=== PATIENT | male | born 1995 | race Caucasian/White ===

== ENCOUNTER 2017-05-11 20:44 | Emergency (ER) | payer OTHER ==
[2017-05-11 20:52] VITALS: BP 108/69; PULSE 74; RESP 14; TEMP 97.9; O2SAT 99
--- NOTE | 2017-05-11 22:18 | PD ---
HPI Chief Complaint: Complaint Time Seen by Provider: 21:44 Travel History International Travel<30 days: No Contact w/Intl Traveler<30days: No Traveled to known affect area: No History of Present Illness HPI Patient is a 22-year-old male presenting to the emergency room for evaluation of left testicle pain. Patient states he fell off his skateboard 1 week ago, landing on his left side. Since that time he felt a tightness in the left testicle that goes into the lower abdomen. He states it feels as if his testicle is retracting. Patient did not hit his testicle on anything he states he did a parachute roll when he fell off. He denies any head injury or loss of consciousness. He has no other physical complaints at this time. He reports the pain feels tight and crampy, the pain is a 7 out of 10 at times, symptom severity is mild to moderate. PFSH Past Medical History Anxiety: Yes Depression: Yes Insomnia: Yes Medical other: Yes ("PRE GLAUCOMA") Psychiatric: Yes (PTSD) Tetanus Vaccination: Unknown Influenza Vaccination: No Past Surgical History Other Surgery: Yes (WISDOM TEETH, EYE PRESSURE SX) Social History Alcohol Use: No Tobacco Use: Yes Substance Use: No Allergies-Medications (Allergen,Severity, Reaction): Coded Allergies: No Known Allergies (Unverified , 05/11/17) Reported Meds & Prescriptions Reported Meds & Active Scripts Active No Active Prescriptions or Reported Medications Review of Systems Except as stated in HPI: all other systems reviewed are Neg Genitourinary: Positive: Other Physical Exam Narrative GENERAL: Well-developed, well-nourished, alert male. Resting comfortably in no acute distress. SKIN: Warm and dry. HEAD: Atraumatic. Normocephalic. EYES: Pupils equal and round. No scleral icterus. No injection or drainage. ENT: No nasal bleeding or discharge. Mucous membranes pink and moist. NECK: Trachea midline. No JVD. CARDIOVASCULAR: Regular rate and rhythm. RESPIRATORY: No accessory muscle use. Clear to auscultation. Breath sounds equal bilaterally. GASTROINTESTINAL: Abdomen soft, non-tender, nondistended. Hepatic and splenic margins not palpable. MUSCULOSKELETAL: Extremities without clubbing, cyanosis, or edema. No obvious deformities. NEUROLOGICAL: Awake and alert. No obvious cranial nerve deficits. Motor grossly within normal limits. Five out of 5 muscle strength in the arms and legs. Normal speech. PSYCHIATRIC: Appropriate mood and affect; insight and judgment normal. Data Data Last Documented VS Vital Signs Date Time Temp Pulse Resp B/P (MAP) Pulse Ox O2 Delivery O2 Flow Rate FiO2 05/11/17 20:52 97.9 74 14 108/69 (82) 99 Orders Orders Us Testicles W Doppler (05/11/17 ) [facility] Medical Decision Making Medical Screen Exam Complete: Yes Emergency Medical Condition: Yes Interpretation(s) Vital Signs Date Time Temp Pulse Resp B/P (MAP) Pulse Ox O2 Delivery O2 Flow Rate FiO2 05/11/17 20:52 97.9 74 14 108/69 (82) 99 Differential Diagnosis Torsion versus groin strain versus hydrocele versus other Narrative Course Patient is well-appearing 22-year-old male presenting for evaluation of left testicle pain after falling off of his skateboard last week. Exam is unremarkable, patient's vital signs are stable. Ultrasound is negative for acute abnormalities. Symptoms appear most consistent with a groin strain. Patient is encouraged to apply warm compresses the affected area, continue gentle range of motion exercises, avoid exacerbating activities. He is encouraged to follow-up with his primary doctor or return to emergency department for any new worsening symptoms. He verbalized understanding of these instructions. Patient stable for discharge. Diagnosis Primary Impression: Strain of groin Qualified Codes: S76.212A - Strain of adductor muscle, fascia and tendon of left thigh, initial encounter Referrals: Primary Care Physician Patient Instructions: General Instructions, Groin Strain (ED) Additional Instructions: Follow-up with your primary doctor Apply warm heat to affected area, continue gentle range of motion exercises, avoid exacerbating activities, avoid bed rest. Take medications as directed Return to emergency department for any new worsening symptoms Med/Other Pt SpecificInfo: Prescription(s) given Scripts Cyclobenzaprine (Flexeril) 10 Mg Tab 10 MG PO TID Y for MUSCLE SPASM, #30 TAB 0 Refills Prov: Radha Dickerson 05/11/17 Ibuprofen (Ibuprofen) 800 Mg Tab 800 MG PO Q6HR Y for PAIN, #40 TAB 0 Refills Prov: Radha Dickerson 05/11/17 Disposition: 01 DISCHARGE HOME Condition: Stable Radha Dickerson May 11, 2017 22:18
--- NOTE | 2017-05-11 22:24 | RADRPT ---
EXAM DATE/TIME: 05/11/2017 21:49 [facility] COMPARISON: No previous studies available for comparison. INDICATIONS : Trauma. MEDICAL HISTORY : None. SURGICAL HISTORY : None. ENCOUNTER: Initial ACUITY: 1 week PAIN SCORE: 4/10 LOCATION: Bilateral testicles. MEASUREMENTS: RIGHT TESTICLE: 4.6 x 2.8 x 1.7cm LEFT TESTICLE: 4.1 x 2.9 x 1.9cm FINDINGS: RIGHT TESTICLE: Homogeneous echotexture without intra or extratesticular mass. Blood flow is symmetric and within no rmal limits. No hydrocele or varicocele. Epididymis is within normal limits. LEFT TESTICLE: Homogeneous echotexture without intra or extratesticular mass. Blood flow is symmetric and within no rmal limits. No hydrocele or varicocele. Epididymis is within normal limits. SCROTUM: Within normal limits. CONCLUSION: 1. Normal ultrasound of the testicles Luis Menjivar MD on May 11, 2017 at 22:23 Board Certified Radiologist. This report was verified electronically.
[2017-05-11] MEDS ORDERED: IBUP1TAB7 PO (22:45)
[2017-05-11] MEDS ORDERED: CYCL10TA PO (22:45)
== END 2017-05-11 23:11 | disposition home or self-care (01) ==
LOC: NEPD 20:44
DX: S76.212A Strain of adductor muscle, fascia and tendon of left thigh, initial encounter (principal); F41.9 Anxiety disorder, unspecified; F32.9 Major depressive disorder, single episode, unspecified; F43.10 Post-traumatic stress disorder, unspecified; V00.131A Fall from skateboard, initial encounter; Y93.51 Activity, roller skating (inline) and skateboarding; Z72.0 Tobacco use
CPT/HCPCS: 76870; 93975; 99284

== ENCOUNTER 2017-08-14 16:02 | Emergency (ER) | payer OTHER ==
[~2017-08-14] VITALS: Ht 172.7 cm; Wt 60.0 kg
[~2017-08-14 16:02] MED LIST: CYCL10TA PO; IBUP1TAB7 PO
[2017-08-14 16:04] VITALS: BP 135/77; PULSE 110; RESP 16; TEMP 98.4; O2SAT 98
--- NOTE | 2017-08-14 17:11 | PD ---
HPI Chief Complaint: Complaint Time Seen by Provider: 16:28 Travel History International Travel<30 days: No Contact w/Intl Traveler<30days: No Traveled to known affect area: No History of Present Illness HPI 22-year-old male presents to the emergency department requesting STD check. He said his girlfriend was diagnosed with either chlamydia or gonorrhea yesterday; he says he cannot remember which one. He denies penile drainage, discharge. Denies dysuria. Denies testicular pain or swelling. Denies fever, vomiting, abdominal pain. Has not taken any medications or trying treatments to alleviate his symptoms. No known aggravating or relieving factors. Symptoms are mild in severity. [facility] care provider [facility]. History of glaucoma and anxiety. No known allergies. Has no other medical complaints. No other modifying factors or associated signs and symptoms. PFSH Past Medical History Anxiety: Yes Depression: Yes Insomnia: Yes Psychiatric: Yes (PTSD) Past Surgical History Other Surgery: Yes (WISDOM TEETH, EYE PRESSURE SX) Social History Alcohol Use: No Tobacco Use: Yes Substance Use: No Allergies-Medications (Allergen,Severity, Reaction): Coded Allergies: No Known Allergies (Unverified , 05/11/17) Reported Meds & Prescriptions Reported Meds & Active Scripts Active No Active Prescriptions or Reported Medications Review of Systems Except as stated in HPI: all other systems reviewed are Neg Physical Exam Narrative GENERAL: Well-nourished, well-developed male patient, in no acute distress SKIN: Warm and dry. HEAD: Atraumatic. Normocephalic. EYES: Pupils equal and round. ENT: Mucosa pink and moist. NECK: Trachea midline. No lymphadenopathy. CARDIOVASCULAR: Regular rate RESPIRATORY: No accessory muscle use. GASTROINTESTINAL: Flat. GENITOURINARY: Exam done in the presence of a nurse. Circumcised. Testes descended bilaterally without evidence of rotation. No lesions or erythema. Milky white urethral discharge. MUSCULOSKELETAL: No obvious deformities. No clubbing. No cyanosis. No edema. NEUROLOGICAL: Awake and alert. Oriented 3. No obvious cranial nerve deficits. Motor grossly within normal limits. Normal speech. Moves all extremities. 5/5 strength to all extremities. PSYCHIATRIC: Appropriate mood and affect; insight and judgment normal. Data Data Last Documented VS Vital Signs Date Time Temp Pulse Resp B/P (MAP) Pulse Ox O2 Delivery O2 Flow Rate FiO2 08/14/17 16:04 98.4 110 16 135/77 (96) 98 Orders Orders Gc And Chlamydia Pcr (08/14/17 17:08) Azithromycin Powd Pack (Zithromax Powd P (08/14/17 17:15) Ceftriaxone Inj (Rocephin Inj) (08/14/17 17:15) Lidocaine 1% Inj (50 Ml) (Xylocaine 1% I (08/14/17 17:15) Metronidazole (Flagyl) (08/14/17 17:15) Ed Discharge Order (08/14/17 17:09) Labs Laboratory Tests Test 08/14/17 17:10 [facility] Medical Decision Making Medical Screen Exam Complete: Yes Emergency Medical Condition: Yes Medical Record Reviewed: Yes Differential Diagnosis Urethritis, chlamydia, gonorrhea, STD exposure Narrative Course 22-year-old male physical exam consistent with urethritis. He does have a milky white discharge from his penis. Chlamydia and gonorrhea ordered and pending. Patient empirically treated with Rocephin, azithromycin, Flagyl in the ER. Instructed patient to follow-up with the [facility] or [facility] department for full STD/STI screen. Instructed patient to follow up with primary care provider. Patient verbalizes understanding and agreement with treatment plan. Patient is medically cleared and stable for discharge. Discussed reasons to return to the emergency department. Patient agrees with treatment plan. The patients vital signs are stable and the patient is stable for outpatient follow-up and treatment. Patient discharged home, stable and in no acute distress. Diagnosis Primary Impression: Urethritis Referrals: [facility] Primary Care Physician [facility] Dept. Patient Instructions: Chlamydia (ED), General Instructions, Gonorrhea (ED), Sexually Transmitted Diseases (ED), Trichomoniasis (ED) Additional Instructions: Avoid sexual activity for 14 days No sexual activity with your partner/s until they have been treated and waited 14 days Inform all sexual partners within the past 3-6 months that they need to be evaluated and treated Use condoms every time you have sex Follow-up with primary care provider Return to the emergency department immediately with worsening of symptoms Med/Other Pt SpecificInfo: No Change to Meds, No Meds Exist/No RX given Scripts No Active Prescriptions or Reported Meds Disposition: 01 DISCHARGE HOME Condition: Stable Antonia Cardenas Aug 14, 2017 17:11
[2017-08-14] MEDS ORDERED: cefTRIAXone 250 MG VIAL IM ONE (17:15)
[2017-08-14] MEDS ORDERED: AZITHROMYCIN PWD FOR SUSP 1 GM PACKET PO ONE (17:15)
[2017-08-14] MEDS ORDERED: metroNIDAZOLE 500 MG TAB PO ONE (17:15)
[2017-08-14] MEDS ORDERED: LIDOCAINE HCL 1% 50 ML VIAL IM ONE (17:15)
== END 2017-08-14 17:45 | disposition home or self-care (01) ==
LOC: NEPD 16:02
DX: N34.2 Other urethritis (principal); Z20.2 Contact with and (suspected) exposure to infections with a predominantly sexual mode of transmission; F32.9 Major depressive disorder, single episode, unspecified; F43.10 Post-traumatic stress disorder, unspecified; Z72.0 Tobacco use
CPT/HCPCS: 87491; 87591; 96372; 99283; J0696